=== PATIENT | male | born 1945 | race Caucasian/White ===

== ENCOUNTER 2018-02-11 12:55 | Inpatient (IN) | payer MEDICARE ==
[~2018-02-11] VITALS: Ht 182.9 cm; Wt 149.7 kg
[~2018-02-11 12:55] MED LIST: ATOR20TA PO; AZO1OS LEFTEYE; BIMA2.5D LEFTEYE; BRIM10DR2 LEFTEYE; ERGO500014 PO; FOLI1TAB2 PO; LEVO25TA2 PO; NOVRI SQ; NPH,100V2 SQ; VITC500T PO; ZOC40T PO
[2018-02-11] MEDS ORDERED: TETanus/Pertussis (Acell)/Diphther VAC/PF (Tdap-Adult) 0.5ml syringe IM ONE (13:00)
[2018-02-11] MEDS ORDERED: vancomycin/NS 1 GM ADD-VANTAGE 250 ML IV ONE (13:00)
[2018-02-11] MEDS ORDERED: piperacillin/tazo 3.375gm/50ml 50 ML IV ONE (13:00)
[2018-02-11 13:36] LABS: BASOPHILS % (AUTO) 0.2 % (0-1); EOSINOPHILS # (AUTO) 0.1 X10'3 (0-0.9); EOSINOPHILS % (AUTO) 1.2 % (0-6); HEMATOCRIT 37.2 % (42.0-52.0); HEMOGLOBIN 12.3 g/dl (14.0-17.9); LYMPHOCYTES # (AUTO) 1.6 X10'3 (1.1-4.8); LYMPHOCYTES % (AUTO) 16.1 % (21-51); MEAN CORPUSCULAR HEMOGLOBIN 27.2 PG (27.0-31.0); MEAN CORPUSCULAR HGB CONC 33.1 % (33.0-36.5); MEAN CORPUSCULAR VOLUME 82.4 FL (78-98); MEAN PLATELET VOLUME 7.6 FL (7.4-10.4); MONOCYTES # (AUTO) 0.4 X10'3 (0-0.9); MONOCYTES % (AUTO) 3.9 % (2-12); NEUTROPHILS # (AUTO) 7.6 X10'3 (1.8-7.7); NEUTROPHILS % (AUTO) 78.6 % (42-75); PLATELET COUNT 222 X10'3 (140-440); RED BLOOD COUNT 4.52 X10'6 (4.70-6.10); RED CELL DISTRIBUTION WIDTH 17.7 % (11.5-14.5); WHITE BLOOD COUNT 9.7 X10'3 (4.5-11.0)
[2018-02-11 13:49] LABS: INR 1.1 INR; PARTIAL THROMBOPLASTIN TIME 35 SECONDS (22-32); PROTHROMBIN TIME 10.9 SECONDS (9.0-12.0)
[2018-02-11 13:57] LABS: ALANINE AMINOTRANSFERASE 26 U/L (12-78); ALBUMIN 2.5 G/DL (3.4-5.0); ALBUMIN/GLOBULIN RATIO 0.5 (1.1-1.5); ALKALINE PHOSPHATASE 188 IU/L (46-116); ANION GAP 8 (8-16); ASPARTATE AMINO TRANSFERASE 22 U/L (10-37); BILIRUBIN,TOTAL 0.4 MG/DL (0.1-1.0); BLOOD UREA NITROGEN 46 MG/DL (7-18); CALCIUM 9.3 MG/DL (8.5-10.1); CHLORIDE 105 MMOL/L (99-107); CREATININE 1.77 MG/DL (0.60-1.10); GLUCOSE 271 MG/DL (70-104); MAGNESIUM 2.3 MG/DL (1.5-2.4); POTASSIUM 5.2 MMOL/L (3.5-5.1); SODIUM 144 MMOL/L (135-145); TOTAL CARBON DIOXIDE 30.6 MMOL/L (24-32); TOTAL PROTEIN 7.8 G/DL (6.4-8.2); eGFR 38 ML/MIN
[2018-02-11] MEDS ORDERED: ondansetron/PF 4mg/2ml inj IV PRN (15:10)
[2018-02-11] MEDS ORDERED: glucagon, human recombinant 1mg kit SUBCUT PRN (15:10)
[2018-02-11] MEDS ORDERED: dextrose ORAL solution 15 GM/59 ML bottle PO PRN ×2 (15:10)
[2018-02-11] MEDS ORDERED: dextrose 50%-water 50ml dispensing syringe IV PRN ×2 (15:10)
[2018-02-11] MEDS ORDERED: MESSAGE TO PHARMACY PO ONE (15:10)
[2018-02-11] MEDS ORDERED: magnesium hydroxide 30ml (MOM) UD suspension PO PRN (15:10)
[2018-02-11] MEDS ORDERED: acetaminophen 325mg tablet PO PRN (15:10)
[2018-02-11] MEDS ORDERED: mag hydrox/Alum hydrox/simeth 30ml oral suspension PO PRN (15:10)
[2018-02-11] MEDS: heparin, porcine 5000 units/ml vial SQ SCH (17:46)
[2018-02-11] MEDS: sodium chloride 0.45% 1,000 ML IV SCH (17:47)
[2018-02-11 18:07] LABS: CLARITY,URINE CLOUDY (Clear); COLOR,URINE YELLOW (Yellow); GLUCOSE, URINE NEGATIVE (Neg); KETONES,URINE NEGATIVE (Neg); LEUKOCYTE ESTERASE ,URINE LARGE (Neg); NITRITES, URINE NEGATIVE (Neg); OCCULT BLOOD,URINE TRACE-INTACT (Neg); PROTEIN,URINE TRACE mg/dl (Neg); UROBILINOGEN,URINE 0.2 E.U/dL (0.2-1.0)
[2018-02-11 18:15] LABS: UA COLLECTION TYPE URINAL
[2018-02-11 18:16] LABS: RBC,URINE 0-2 /HPF (0-2); WBC,URINE 30-50 /HPF (0-4)
[2018-02-11 18:17] LABS: BACTERIA,URINE FEW /HPF (Neg); MUCUS STRANDS NONE SEEN /LPF (Neg); RENAL CELLS, URINE FEW /HPF; SQUAMOUS EPITHELIAL CELL,UR FEW /LPF (FEW); YEAST MANY /HPF (NEGATIVE)
[2018-02-11] MEDS: aztreonam inj. 1,000 MG in normal saline 100ml IV soln 100 ML IV SCH (20:38)
[2018-02-11] MEDS: insulin glargine (Lantus) pen - multi-dose SQ SCH (21:00)
[2018-02-12] MEDS: heparin, porcine 5000 units/ml vial SQ SCH ×3 (01:19→23:27)
[2018-02-12] MEDS: sodium chloride 0.45% 1,000 ML IV SCH ×2 (03:02→16:21)
[2018-02-12 06:37] LABS: BASOPHILS % (AUTO) 0.1 % (0-1); EOSINOPHILS # (AUTO) 0.1 X10'3 (0-0.9); EOSINOPHILS % (AUTO) 1.3 % (0-6); HEMATOCRIT 34.4 % (42.0-52.0); HEMOGLOBIN 11.5 g/dl (14.0-17.9); LYMPHOCYTES # (AUTO) 1.8 X10'3 (1.1-4.8); LYMPHOCYTES % (AUTO) 21.9 % (21-51); MEAN CORPUSCULAR HEMOGLOBIN 27.6 PG (27.0-31.0); MEAN CORPUSCULAR HGB CONC 33.4 % (33.0-36.5); MEAN CORPUSCULAR VOLUME 82.7 FL (78-98); MEAN PLATELET VOLUME 7.5 FL (7.4-10.4); MONOCYTES # (AUTO) 0.5 X10'3 (0-0.9); MONOCYTES % (AUTO) 5.8 % (2-12); NEUTROPHILS # (AUTO) 5.8 X10'3 (1.8-7.7); NEUTROPHILS % (AUTO) 70.9 % (42-75); PLATELET COUNT 196 X10'3 (140-440); RED BLOOD COUNT 4.16 X10'6 (4.70-6.10); RED CELL DISTRIBUTION WIDTH 17.5 % (11.5-14.5); WHITE BLOOD COUNT 8.2 X10'3 (4.5-11.0)
[2018-02-12 07:08] LABS: ALBUMIN 2.3 G/DL (3.4-5.0); ANION GAP 8 (8-16); BLOOD UREA NITROGEN 39 MG/DL (7-18); BUN/CREATININE RATIO 23.5 (5.4-32.0); CALCIUM 8.4 MG/DL (8.5-10.1); CHLORIDE 107 MMOL/L (99-107); CREATININE 1.66 MG/DL (0.60-1.10); GLUCOSE 249 MG/DL (70-104); MAGNESIUM 2.2 MG/DL (1.5-2.4); POTASSIUM 4.8 MMOL/L (3.5-5.1); SODIUM 144 MMOL/L (135-145); TOTAL CARBON DIOXIDE 29.3 MMOL/L (24-32); eGFR 41 ML/MIN
[2018-02-12] MEDS ORDERED: levoFLOXACIN-Levaquin 750MG/D5 150 ML IV SCH (08:00)
[2018-02-12] MEDS: aztreonam inj. 1,000 MG in normal saline 100ml IV soln 100 ML IV SCH ×2 (09:12→19:20)
[2018-02-12 11:00] VITALS: BP 124/58
[2018-02-12] MEDS: insulin Lispro (HumaLOG) vial - multi-dose SQ SCH ×4 (11:02→23:13)
[2018-02-12] MEDS ORDERED: ATOR20TA PO (12:31)
[2018-02-12] MEDS ORDERED: ASPI-611 PO (12:32)
[2018-02-12] MEDS: metroNIDAZOLE 500mg tablet PO SCH ×3 (13:46→23:30)
[2018-02-12] MEDS ORDERED: pneumococcal 23-VAL P-sac vacc 25 mcg/0.5ml vial IMVAC ONE (14:00)
[2018-02-12] MEDS ORDERED: FLU VACC QS2017-18 36MOS UP/PF 60 MCG/0.5 ML SYRINGE IMVAC ONE (14:00)
[2018-02-12 19:00] VITALS: BP 126/58
[2018-02-12] MEDS: lactobacillus rhamnosus 10,000 MMU CELLS/CAPSULE PO SCH (19:19)
[2018-02-12 23:00] VITALS: BP 92/51
[2018-02-12] MEDS: insulin glargine (Lantus) pen - multi-dose SQ SCH (23:14)
[2018-02-13] MEDS: aztreonam inj. 1,000 MG in normal saline 100ml IV soln 100 ML IV SCH ×2 (01:34→09:33)
[2018-02-13 06:00] VITALS: BP 106/55
[2018-02-13] MEDS: metroNIDAZOLE 500mg tablet PO SCH ×3 (09:34→23:55)
[2018-02-13] MEDS: lactobacillus rhamnosus 10,000 MMU CELLS/CAPSULE PO SCH ×2 (09:34→19:43)
[2018-02-13] MEDS: heparin, porcine 5000 units/ml vial SQ SCH ×4 (09:34→23:56)
[2018-02-13] MEDS: sodium chloride 0.45% 1,000 ML IV SCH ×2 (09:42→20:52)
[2018-02-13] MEDS: insulin Lispro (HumaLOG) vial - multi-dose SQ SCH ×2 (09:53→15:19)
[2018-02-13 10:00] VITALS: BP 107/38
[2018-02-13] MEDS ORDERED: VANCOMYCIN LEVEL IV ONE (14:30)
[2018-02-13 14:59] LABS: ANION GAP 8 (8-16); BLOOD UREA NITROGEN 39 MG/DL (7-18); BUN/CREATININE RATIO 19.3 (5.4-32.0); CALCIUM 7.8 MG/DL (8.5-10.1); CHLORIDE 110 MMOL/L (99-107); CREATININE 2.02 MG/DL (0.60-1.10); GLUCOSE 175 MG/DL (70-104); POTASSIUM 4.6 MMOL/L (3.5-5.1); SODIUM 144 MMOL/L (135-145); TOTAL CARBON DIOXIDE 26.1 MMOL/L (24-32); eGFR 33 ML/MIN
[2018-02-13] MEDS: aztreonam inj. 1,000 MG in dextrose 5%-water 50ml 50 ML IV SCH ×3 (15:20→23:56)
[2018-02-13 18:30] VITALS: BP 114/48
[2018-02-13] MEDS: insulin glargine (Lantus) pen - multi-dose SQ SCH (20:54)
[2018-02-13 22:00] VITALS: BP 125/64
[2018-02-14] MEDS ORDERED: VANCOMYCIN LEVEL IV SCH (03:00)
[2018-02-14 04:37] LABS: BASOPHILS # (AUTO) 0.1 X10'3 (0-0.2); BASOPHILS % (AUTO) 0.7 % (0-1); EOSINOPHILS # (AUTO) 0.1 X10'3 (0-0.9); EOSINOPHILS % (AUTO) 1.3 % (0-6); HEMATOCRIT 30.7 % (42.0-52.0); HEMOGLOBIN 10.2 g/dl (14.0-17.9); LYMPHOCYTES # (AUTO) 2.1 X10'3 (1.1-4.8); MEAN CORPUSCULAR HEMOGLOBIN 27.3 PG (27.0-31.0); MEAN CORPUSCULAR HGB CONC 33.3 % (33.0-36.5); MEAN CORPUSCULAR VOLUME 81.9 FL (78-98); MEAN PLATELET VOLUME 7.4 FL (7.4-10.4); MONOCYTES # (AUTO) 0.8 X10'3 (0-0.9); MONOCYTES % (AUTO) 9.4 % (2-12); NEUTROPHILS # (AUTO) 5.5 X10'3 (1.8-7.7); NEUTROPHILS % (AUTO) 64.6 % (42-75); PLATELET COUNT 183 X10'3 (140-440); RED BLOOD COUNT 3.75 X10'6 (4.70-6.10); RED CELL DISTRIBUTION WIDTH 17.7 % (11.5-14.5); WHITE BLOOD COUNT 8.6 X10'3 (4.5-11.0)
[2018-02-14 04:53] LABS: ANION GAP 8 (8-16); BLOOD UREA NITROGEN 37 MG/DL (7-18); BUN/CREATININE RATIO 19.1 (5.4-32.0); CALCIUM 7.5 MG/DL (8.5-10.1); CHLORIDE 109 MMOL/L (99-107); CREATININE 1.94 MG/DL (0.60-1.10); GLUCOSE 132 MG/DL (70-104); POTASSIUM 4.2 MMOL/L (3.5-5.1); SODIUM 143 MMOL/L (135-145); TOTAL CARBON DIOXIDE 26.2 MMOL/L (24-32); VANCOMYCIN,RANDOM 26.8 UG/ML; eGFR 34 ML/MIN
[2018-02-14 06:00] VITALS: BP 123/77
[2018-02-14 08:00] VITALS: BP 120/68
[2018-02-14 09:59] VITALS: BP 126/64
[2018-02-14] MEDS: lactobacillus rhamnosus 10,000 MMU CELLS/CAPSULE PO SCH ×2 (12:04→19:38)
[2018-02-14] MEDS: aztreonam inj. 1,000 MG in dextrose 5%-water 50ml 50 ML IV SCH ×2 (12:04→16:26)
[2018-02-14] MEDS: metroNIDAZOLE 500mg tablet PO SCH ×2 (12:04→16:26)
[2018-02-14] MEDS: heparin, porcine 5000 units/ml vial SQ SCH ×2 (12:05→16:27)
[2018-02-14] MEDS: insulin Lispro (HumaLOG) vial - multi-dose SQ SCH ×2 (14:00→19:36)
[2018-02-14] MEDS: VANCOMYCIN 750MG IV in NS 250 ML IV SCH (17:38)
[2018-02-14] MEDS: sodium chloride 0.45% 1,000 ML IV SCH (17:39)
[2018-02-14 18:00] VITALS: BP 124/58
[2018-02-14] MEDS: insulin glargine (Lantus) pen - multi-dose SQ SCH (21:42)
[2018-02-14 22:00] VITALS: BP 133/67
[2018-02-15] MEDS: aztreonam inj. 1,000 MG in dextrose 5%-water 50ml 50 ML IV SCH ×3 (00:21→18:00)
[2018-02-15] MEDS: heparin, porcine 5000 units/ml vial SQ SCH ×4 (00:21→23:59)
[2018-02-15] MEDS: metroNIDAZOLE 500mg tablet PO SCH ×3 (00:21→18:00)
[2018-02-15] MEDS: sodium chloride 0.45% 1,000 ML IV SCH ×4 (01:05→21:35)
[2018-02-15] MEDS: VANCOMYCIN 750MG IV in NS 250 ML IV SCH ×2 (05:09→18:00)
[2018-02-15 06:00] VITALS: BP 133/74
[2018-02-15 06:24] LABS: ANION GAP 10 (8-16); BLOOD UREA NITROGEN 34 MG/DL (7-18); BUN/CREATININE RATIO 17.6 (5.4-32.0); CALCIUM 7.8 MG/DL (8.5-10.1); CHLORIDE 109 MMOL/L (99-107); CREATININE 1.93 MG/DL (0.60-1.10); GLUCOSE 121 MG/DL (70-104); POTASSIUM 4.1 MMOL/L (3.5-5.1); SODIUM 144 MMOL/L (135-145); TOTAL CARBON DIOXIDE 25.1 MMOL/L (24-32); eGFR 34 ML/MIN
[2018-02-15] MEDS: lactobacillus rhamnosus 10,000 MMU CELLS/CAPSULE PO SCH ×2 (07:56→21:36)
[2018-02-15 10:00] VITALS: BP 145/71
[2018-02-15 18:00] VITALS: BP 135/66
[2018-02-15] MEDS: insulin glargine (Lantus) pen - multi-dose SQ SCH (21:00)
[2018-02-15 22:00] VITALS: BP 121/55
[2018-02-16] MEDS ORDERED: VANCOMYCIN LEVEL IV NR (04:30)
[2018-02-16 06:00] VITALS: BP 116/59
[2018-02-16 07:04] LABS: ALBUMIN 1.9 G/DL (3.4-5.0); ANION GAP 11 (8-16); BLOOD UREA NITROGEN 29 MG/DL (7-18); BUN/CREATININE RATIO 16.2 (5.4-32.0); CALCIUM 7.6 MG/DL (8.5-10.1); CHLORIDE 109 MMOL/L (99-107); CREATININE 1.79 MG/DL (0.60-1.10); GLUCOSE 130 MG/DL (70-104); POTASSIUM 3.8 MMOL/L (3.5-5.1); SODIUM 143 MMOL/L (135-145); TOTAL CARBON DIOXIDE 23.4 MMOL/L (24-32); eGFR 38 ML/MIN
[2018-02-16] MEDS: lactobacillus rhamnosus 10,000 MMU CELLS/CAPSULE PO SCH ×2 (08:00→20:00)
[2018-02-16] MEDS: heparin, porcine 5000 units/ml vial SQ SCH ×2 (08:00→18:19)
[2018-02-16] MEDS: metroNIDAZOLE 500mg tablet PO SCH ×3 (08:00→16:00)
[2018-02-16 10:00] VITALS: BP 195/71
[2018-02-16] MEDS: sodium chloride 0.45% 1,000 ML IV SCH ×2 (10:31→17:05)
[2018-02-16] MEDS: aztreonam inj. 1,000 MG in dextrose 5%-water 50ml 50 ML IV SCH ×4 (10:31→18:18)
[2018-02-16 17:46] LABS: ABG BASE EXCESS -1.7 mmol/L (-2.0-3.0); ABG HCO3 24.1 mmol/L (22.0-26.0); ABG OXYGEN SATURATION 94.5 % (95-98); ABG PCO2 (T) 45.3 mmHg (35.0-48.0); ABG PH (T) 7.344 (7.350-7.450); ABG PO2 (T) 79.4 mmHg (83-108); ALLEN'S TEST Positive; FCOHb 1.2 % (0.5-1.5); FLOW 2 L/min; FMetHb 0.3 % (0.3-1.12); FO2Hb 93.1 % (94-100); TOTAL HEMOGLOBIN 11.3 G/dl (14.0-18.0)
[2018-02-16 19:00] LABS: BASOPHILS # (AUTO) 0.1 X10'3 (0-0.2); BASOPHILS % (AUTO) 0.5 % (0-1); EOSINOPHILS # (AUTO) 0.1 X10'3 (0-0.9); EOSINOPHILS % (AUTO) 1.3 % (0-6); HEMATOCRIT 32.2 % (42.0-52.0); HEMOGLOBIN 10.6 g/dl (14.0-17.9); LYMPHOCYTES # (AUTO) 1.6 X10'3 (1.1-4.8); MEAN CORPUSCULAR HEMOGLOBIN 27.5 PG (27.0-31.0); MEAN CORPUSCULAR HGB CONC 32.9 % (33.0-36.5); MEAN CORPUSCULAR VOLUME 83.7 FL (78-98); MEAN PLATELET VOLUME 6.9 FL (7.4-10.4); MONOCYTES # (AUTO) 1.2 X10'3 (0-0.9); MONOCYTES % (AUTO) 10.1 % (2-12); NEUTROPHILS # (AUTO) 8.4 X10'3 (1.8-7.7); NEUTROPHILS % (AUTO) 74.1 % (42-75); PLATELET COUNT 231 X10'3 (140-440); RED BLOOD COUNT 3.85 X10'6 (4.70-6.10); RED CELL DISTRIBUTION WIDTH 18.3 % (11.5-14.5); WHITE BLOOD COUNT 11.4 X10'3 (4.5-11.0)
[2018-02-16 19:29] LABS: ALANINE AMINOTRANSFERASE 23 U/L (12-78); ALBUMIN 2.1 G/DL (3.4-5.0); ALBUMIN/GLOBULIN RATIO 0.4 (1.1-1.5); ALKALINE PHOSPHATASE 199 IU/L (46-116); ANION GAP 12 (8-16); ASPARTATE AMINO TRANSFERASE 32 U/L (10-37); BILIRUBIN,TOTAL 0.5 MG/DL (0.1-1.0); BLOOD UREA NITROGEN 28 MG/DL (7-18); BUN/CREATININE RATIO 16.6 (5.4-32.0); CALCIUM 7.7 MG/DL (8.5-10.1); CHLORIDE 108 MMOL/L (99-107); CREATININE 1.69 MG/DL (0.60-1.10); GLUCOSE 137 MG/DL (70-104); POTASSIUM 3.7 MMOL/L (3.5-5.1); SODIUM 144 MMOL/L (135-145); TOTAL CARBON DIOXIDE 23.6 MMOL/L (24-32); TOTAL PROTEIN 6.8 G/DL (6.4-8.2); TROPONIN I < 0.04 NG/ML (0.0-0.05); eGFR 40 ML/MIN
[2018-02-16] MEDS: insulin glargine (Lantus) pen - multi-dose SQ SCH (21:00)
[2018-02-16] MEDS: vancomycin inj 500 MG in dextrose 5%-water 100 ML IV SCH (21:46)
[2018-02-16] MEDS ORDERED: naloxone 0.4 mg/ml inj IV ONE (21:55)
[2018-02-16] MEDS ORDERED: naloxone 0.4 mg/ml inj ONE (21:58)
[2018-02-16 22:00] VITALS: BP 137/50
[2018-02-16 22:34] LABS: URINE AMPHETAMINE SCREEN NEGATIVE (Neg); URINE BARBITUATE SCREEN NEGATIVE (Neg); URINE BENZODIAZEPINES SCREEN NEGATIVE (Neg); URINE CANNABINOID SCREEN NEGATIVE (Neg); URINE COCAINE SCREEN NEGATIVE (Neg); URINE METHADONE SCREEN NEGATIVE (Neg); URINE OPIATE SCREEN NEGATIVE (Neg); URINE PHENCYCLIDINE SCREEN NEGATIVE (Neg)
[2018-02-17] MEDS: aztreonam inj. 1,000 MG in dextrose 5%-water 50ml 50 ML IV SCH ×4 (00:14→23:51)
[2018-02-17] MEDS: heparin, porcine 5000 units/ml vial SQ SCH ×3 (00:15→16:18)
[2018-02-17] MEDS: sodium chloride 0.45% 1,000 ML IV SCH ×3 (00:16→23:05)
[2018-02-17 02:00] VITALS: BP 123/60
[2018-02-17] MEDS ORDERED: vancomycin/NS 1 GM ADD-VANTAGE 250 ML IV SCH (05:00)
[2018-02-17] MEDS: vancomycin inj 500 MG in dextrose 5%-water 100 ML IV SCH ×2 (05:28→17:00)
[2018-02-17 06:00] VITALS: BP 123/50
[2018-02-17] MEDS: metroNIDAZOLE 500mg tablet PO SCH ×4 (08:00→23:09)
[2018-02-17] MEDS: lactobacillus rhamnosus 10,000 MMU CELLS/CAPSULE PO SCH ×2 (08:00→20:43)
[2018-02-17] MEDS ORDERED: furosemide 20 MG/2 ML vial IV ONE (08:20)
[2018-02-17 11:20] LABS: ALBUMIN 1.9 G/DL (3.4-5.0); ANION GAP 9 (8-16); BLOOD UREA NITROGEN 27 MG/DL (7-18); BUN/CREATININE RATIO 18.1 (5.4-32.0); CALCIUM 7.6 MG/DL (8.5-10.1); CHLORIDE 109 MMOL/L (99-107); CREATININE 1.49 MG/DL (0.60-1.10); GLUCOSE 158 MG/DL (70-104); SODIUM 144 MMOL/L (135-145); TOTAL CARBON DIOXIDE 25.6 MMOL/L (24-32); eGFR 46 ML/MIN
[2018-02-17 15:00] VITALS: BP 125/54
[2018-02-17] MEDS: metroNIDAZOLE-Flagyl 500mg/NS 100 ML IV SCH ×2 (16:00→23:17)
[2018-02-17 18:00] VITALS: BP 136/54
[2018-02-17] MEDS: insulin glargine (Lantus) pen - multi-dose SQ SCH (21:00)
[2018-02-17 22:00] VITALS: BP 122/52
[2018-02-17] MEDS ORDERED: aztreonam 1,000MG vial ONE (23:31)
[2018-02-18] MEDS: heparin, porcine 5000 units/ml vial SQ SCH ×3 (00:18→16:20)
[2018-02-18 02:00] VITALS: BP 134/59
[2018-02-18] MEDS: vancomycin inj 500 MG in dextrose 5%-water 100 ML IV SCH ×2 (04:29→17:47)
[2018-02-18] MEDS ORDERED: VANCOMYCIN LEVEL IV NR (04:30)
[2018-02-18 04:50] LABS: ALBUMIN 1.7 G/DL (3.4-5.0); ANION GAP 7 (8-16); BLOOD UREA NITROGEN 27 MG/DL (7-18); BUN/CREATININE RATIO 17.8 (5.4-32.0); CALCIUM 7.4 MG/DL (8.5-10.1); CHLORIDE 108 MMOL/L (99-107); CREATININE 1.52 MG/DL (0.60-1.10); GLUCOSE 225 MG/DL (70-104); POTASSIUM 3.8 MMOL/L (3.5-5.1); SODIUM 143 MMOL/L (135-145); TOTAL CARBON DIOXIDE 27.7 MMOL/L (24-32); VANCOMYCIN,TROUGH 17.1 UG/ML (6.0-14.0); eGFR 45 ML/MIN
[2018-02-18] MEDS: sodium chloride 0.45% 1,000 ML IV SCH ×2 (05:34→19:05)
[2018-02-18 07:11] VITALS: BP 133/55
[2018-02-18] MEDS: metroNIDAZOLE-Flagyl 500mg/NS 100 ML IV SCH (08:00)
[2018-02-18] MEDS ORDERED: furosemide 20 MG/2 ML vial IV SCH (08:00)
[2018-02-18] MEDS: lactobacillus rhamnosus 10,000 MMU CELLS/CAPSULE PO SCH ×2 (08:34→19:25)
[2018-02-18] MEDS: aztreonam inj. 1,000 MG in dextrose 5%-water 50ml 50 ML IV SCH ×2 (08:34→16:20)
[2018-02-18] MEDS: metroNIDAZOLE 500mg tablet PO SCH ×2 (08:34→16:20)
[2018-02-18 11:00] VITALS: BP 131/58
[2018-02-18] MEDS: insulin Lispro (HumaLOG) vial - multi-dose SQ SCH ×2 (13:33→19:33)
[2018-02-18] MEDS ORDERED: gabapentin 100mg capsule PO PRN (14:05)
[2018-02-18 15:00] VITALS: BP 112/45
[2018-02-18 18:00] VITALS: BP 130/58
[2018-02-18] MEDS: insulin glargine (Lantus) pen - multi-dose SQ SCH (20:55)
[2018-02-18] MEDS: Melatonin 3mg tablet PO SCH (20:59)
[2018-02-18 22:00] VITALS: BP 118/55
[2018-02-19] MEDS: aztreonam inj. 1,000 MG in dextrose 5%-water 50ml 50 ML IV SCH ×3 (00:25→15:56)
[2018-02-19] MEDS: metroNIDAZOLE 500mg tablet PO SCH ×3 (00:25→15:56)
[2018-02-19] MEDS: heparin, porcine 5000 units/ml vial SQ SCH ×3 (00:28→15:56)
[2018-02-19 02:00] VITALS: BP 119/48
[2018-02-19] MEDS: sodium chloride 0.45% 1,000 ML IV SCH ×2 (05:05→15:20)
[2018-02-19 05:20] LABS: BASOPHILS % (AUTO) 0.3 % (0-1); EOSINOPHILS # (AUTO) 0.2 X10'3 (0-0.9); EOSINOPHILS % (AUTO) 1.7 % (0-6); HEMATOCRIT 29.7 % (42.0-52.0); HEMOGLOBIN 9.7 g/dl (14.0-17.9); LYMPHOCYTES # (AUTO) 1.6 X10'3 (1.1-4.8); LYMPHOCYTES % (AUTO) 14.2 % (21-51); MEAN CORPUSCULAR HEMOGLOBIN 27.6 PG (27.0-31.0); MEAN CORPUSCULAR HGB CONC 32.7 % (33.0-36.5); MEAN CORPUSCULAR VOLUME 84.4 FL (78-98); MEAN PLATELET VOLUME 7.8 FL (7.4-10.4); MONOCYTES % (AUTO) 9.2 % (2-12); NEUTROPHILS # (AUTO) 8.5 X10'3 (1.8-7.7); NEUTROPHILS % (AUTO) 74.6 % (42-75); PLATELET COUNT 247 X10'3 (140-440); RED BLOOD COUNT 3.52 X10'6 (4.70-6.10); RED CELL DISTRIBUTION WIDTH 17.7 % (11.5-14.5); WHITE BLOOD COUNT 11.3 X10'3 (4.5-11.0)
[2018-02-19] MEDS: vancomycin inj 500 MG in dextrose 5%-water 100 ML IV SCH ×2 (05:22→17:18)
[2018-02-19 05:27] LABS: ALBUMIN 1.7 G/DL (3.4-5.0); ALBUMIN/GLOBULIN RATIO 0.4 (1.1-1.5); ALKALINE PHOSPHATASE 177 IU/L (46-116); ANION GAP 8 (8-16); ASPARTATE AMINO TRANSFERASE 15 U/L (10-37); BILIRUBIN,TOTAL 0.2 MG/DL (0.1-1.0); BLOOD UREA NITROGEN 29 MG/DL (7-18); CALCIUM 7.6 MG/DL (8.5-10.1); CHLORIDE 105 MMOL/L (99-107); CREATININE 1.53 MG/DL (0.60-1.10); GLUCOSE 204 MG/DL (70-104); POTASSIUM 4.1 MMOL/L (3.5-5.1); SODIUM 139 MMOL/L (135-145); TOTAL CARBON DIOXIDE 26.1 MMOL/L (24-32); TOTAL PROTEIN 6.4 G/DL (6.4-8.2); eGFR 45 ML/MIN
[2018-02-19 05:41] LABS: ALANINE AMINOTRANSFERASE 16 U/L (12-78)
[2018-02-19 06:39] VITALS: BP 123/53
[2018-02-19] MEDS: lactobacillus rhamnosus 10,000 MMU CELLS/CAPSULE PO SCH ×2 (08:01→21:37)
[2018-02-19] MEDS: insulin Lispro (HumaLOG) vial - multi-dose SQ SCH ×4 (08:13→21:42)
[2018-02-19 11:00] VITALS: BP 132/59
[2018-02-19 15:00] VITALS: BP 147/61
[2018-02-19 19:00] VITALS: BP 179/82
[2018-02-19] MEDS: Melatonin 3mg tablet PO SCH (21:37)
[2018-02-19] MEDS: insulin glargine (Lantus) pen - multi-dose SQ SCH (21:46)
[2018-02-19 23:00] VITALS: BP 148/60
[2018-02-20] MEDS: metroNIDAZOLE 500mg tablet PO SCH ×3 (00:29→16:37)
[2018-02-20] MEDS: heparin, porcine 5000 units/ml vial SQ SCH ×2 (00:29→10:49)
[2018-02-20] MEDS: aztreonam inj. 1,000 MG in dextrose 5%-water 50ml 50 ML IV SCH ×3 (00:30→16:37)
[2018-02-20 02:43] LABS: BASOPHILS # (AUTO) 0.1 X10'3 (0-0.2); BASOPHILS % (AUTO) 0.9 % (0-1); EOSINOPHILS # (AUTO) 0.3 X10'3 (0-0.9); EOSINOPHILS % (AUTO) 2.8 % (0-6); HEMATOCRIT 29.9 % (42.0-52.0); HEMOGLOBIN 9.8 g/dl (14.0-17.9); LYMPHOCYTES # (AUTO) 1.9 X10'3 (1.1-4.8); LYMPHOCYTES % (AUTO) 15.6 % (21-51); MEAN CORPUSCULAR HEMOGLOBIN 27.9 PG (27.0-31.0); MEAN CORPUSCULAR HGB CONC 32.6 % (33.0-36.5); MEAN CORPUSCULAR VOLUME 85.4 FL (78-98); MEAN PLATELET VOLUME 8.4 FL (7.4-10.4); MONOCYTES # (AUTO) 1.1 X10'3 (0-0.9); MONOCYTES % (AUTO) 8.9 % (2-12); NEUTROPHILS # (AUTO) 8.6 X10'3 (1.8-7.7); NEUTROPHILS % (AUTO) 71.8 % (42-75); PLATELET COUNT 305 X10'3 (140-440); RED CELL DISTRIBUTION WIDTH 18.8 % (11.5-14.5); WHITE BLOOD COUNT 11.9 X10'3 (4.5-11.0)
[2018-02-20 02:58] LABS: ALANINE AMINOTRANSFERASE 16 U/L (12-78); ALBUMIN 1.7 G/DL (3.4-5.0); ALBUMIN/GLOBULIN RATIO 0.3 (1.1-1.5); ALKALINE PHOSPHATASE 184 IU/L (46-116); ANION GAP 6 (8-16); ASPARTATE AMINO TRANSFERASE 12 U/L (10-37); BILIRUBIN,TOTAL 0.2 MG/DL (0.1-1.0); BLOOD UREA NITROGEN 28 MG/DL (7-18); BUN/CREATININE RATIO 17.7 (5.4-32.0); CALCIUM 7.7 MG/DL (8.5-10.1); CHLORIDE 106 MMOL/L (99-107); CREATININE 1.58 MG/DL (0.60-1.10); GLUCOSE 214 MG/DL (70-104); POTASSIUM 4.1 MMOL/L (3.5-5.1); SODIUM 141 MMOL/L (135-145); TOTAL PROTEIN 6.6 G/DL (6.4-8.2); eGFR 43 ML/MIN
[2018-02-20 03:00] VITALS: BP 136/47
[2018-02-20] MEDS: vancomycin inj 500 MG in dextrose 5%-water 100 ML IV SCH (04:24)
[2018-02-20] MEDS: sodium chloride 0.45% 1,000 ML IV SCH (04:24)
[2018-02-20] MEDS ORDERED: VANCOMYCIN LEVEL IV NR (04:30)
[2018-02-20 07:00] VITALS: BP 135/54
[2018-02-20] MEDS: insulin Lispro (HumaLOG) vial - multi-dose SQ SCH (09:45)
[2018-02-20] MEDS: lactobacillus rhamnosus 10,000 MMU CELLS/CAPSULE PO SCH (10:50)
[2018-02-20 11:00] VITALS: BP 159/64
[2018-02-20 17:00] VITALS: BP 176/69
== END 2018-02-20 17:47 | DRG 564 ==
LOC: EDBD 12:56 → ER 12:56 → ED HOLD 15:06 → EDBEDREQ 02-12 06:37 → ORTHO 4S 02-12 07:20 → PCU 3S 02-16 19:30
PROVIDERS: ADMIT Internal Medicine; ATTEND Family Medicine
PROC: 02HV33Z Insertion of Infusion Device into Superior Vena Cava, Percutaneous Approach (ICD-10-PCS; principal; 2018-02-16)
PROC: B548ZZA Ultrasonography of Superior Vena Cava, Guidance (ICD-10-PCS; 2018-02-16)
DX: T87.44 Infection of amputation stump, left lower extremity (principal); A41.9 Sepsis, unspecified organism; E43 Unspecified severe protein-calorie malnutrition; G93.40 Encephalopathy, unspecified; I50.33 Acute on chronic diastolic (congestive) heart failure; N17.9 Acute kidney failure, unspecified; L03.115 Cellulitis of right lower limb; L03.116 Cellulitis of left lower limb; Z68.41 Body mass index [BMI] 40.0-44.9, adult; I13.0 Hypertensive heart and chronic kidney disease with heart failure and stage 1 through stage 4 chronic kidney disease, or unspecified chronic kidney disease; M86.68 Other chronic osteomyelitis, other site; T87.43 Infection of amputation stump, right lower extremity; E66.01 Morbid (severe) obesity due to excess calories; F17.210 Nicotine dependence, cigarettes, uncomplicated; E11.65 Type 2 diabetes mellitus with hyperglycemia; E11.22 Type 2 diabetes mellitus with diabetic chronic kidney disease; E11.69 Type 2 diabetes mellitus with other specified complication; B95.62 Methicillin resistant Staphylococcus aureus infection as the cause of diseases classified elsewhere; I89.0 Lymphedema, not elsewhere classified; K21.9 Gastro-esophageal reflux disease without esophagitis; N18.3 Chronic kidney disease, stage 3 (moderate); Z74.01 Bed confinement status; Z89.512 Acquired absence of left leg below knee; Z89.511 Acquired absence of right leg below knee; Z88.0 Allergy status to penicillin; Z79.4 Long term (current) use of insulin; Z79.899 Other long term (current) drug therapy; Z83.3 Family history of diabetes mellitus; Z23 Encounter for immunization; Y83.8 Other surgical procedures as the cause of abnormal reaction of the patient, or of later complication, without mention of misadventure at the time of the procedure; Y92.89 Other specified places as the place of occurrence of the external cause
CPT/HCPCS: 36415; 36569; 36600; 70450; 71045; 73560; 76937; 80048; 80053; 80202; 80305; 81001; 82140; 82803; 82948; 83036; 83605; 83735; 83880; 84145; 84443; 84484; 85018; 85025; 85610; 85730; 87040; 87070; 87077; 87088; 87186; 90715; 93005; 93306; 99285; A4315; A4649; A6209; A6212; A6213; A6222; A6223; A6224; A6250; A6253; A6255; A6258; A6402; A6446; A6449; A9270; J1644; J1815; J1940; J2310; J3370; J3490; J7030; J7060

== ENCOUNTER 2020-08-08 10:51 | Outpatient (CLI) | payer MEDICARE ==
[~2020-08-08 10:51] MED LIST changes: +ASPI-611 PO
== END 2020-08-08 23:59 | disposition home or self-care (01) ==
LOC: LAB SPEC 10:51
PROVIDERS: ATTEND Internal Medicine
DX: S81.802A Unspecified open wound, left lower leg, initial encounter (principal); X58.XXXA Exposure to other specified factors, initial encounter; Y93.89 Activity, other specified; Y92.89 Other specified places as the place of occurrence of the external cause; Y99.8 Other external cause status
CPT/HCPCS: 87070; 87077; 87186

== ENCOUNTER 2023-12-15 14:32 | Inpatient (IN) | payer MEDICARE ==
[~2023-12-15] VITALS: Ht 185.4 cm; Wt 86.0 kg
[~2023-12-15 14:32] MED LIST changes: -AZO1OS LEFTEYE; +BRIN10DR6 LEFTEYE; -ERGO500014 PO; -LEVO25TA2 PO; +LEVO50TA8 PO; -NOVRI SQ; +SULF1TAB49 PO; -VITC500T PO; -ZOC40T PO
[2023-12-15] MEDS: normal saline 1000ML IV soln IVB ONE ×2 (15:10→23:05)
[2023-12-15 16:39] LABS: BASOPHILS % (AUTO) 0.2 % (0-1); EOSINOPHILS # (AUTO) 0.1 X10'3 (0-0.9); EOSINOPHILS % (AUTO) 0.7 % (0-6); HEMATOCRIT 35.5 % (42.0-52.0); HEMOGLOBIN 11.5 g/dl (14.0-17.9); LYMPHOCYTES # (AUTO) 0.9 X10'3 (1.1-4.8); LYMPHOCYTES % (AUTO) 11.7 % (21-51); MEAN CORPUSCULAR HEMOGLOBIN 27.3 PG (27.0-31.0); MEAN CORPUSCULAR HGB CONC 32.4 g/dL (33.0-36.5); MEAN CORPUSCULAR VOLUME 84.4 FL (78-98); MEAN PLATELET VOLUME 7.8 FL (7.4-10.4); MONOCYTES # (AUTO) 0.5 X10'3 (0-0.9); MONOCYTES % (AUTO) 6.6 % (2-12); NEUTROPHILS # (AUTO) 6.1 X10'3 (1.8-7.7); NEUTROPHILS % (AUTO) 80.8 % (42-75); PLATELET COUNT 161 X10'3 (140-440); WHITE BLOOD COUNT 7.5 X10'3 (4.5-11.0)
[2023-12-15 16:57] LABS: ALANINE AMINOTRANSFERASE 57 U/L (12-78); ALBUMIN 1.9 G/DL (3.4-5.0); ALBUMIN/GLOBULIN RATIO 0.5 (1.1-1.5); ALKALINE PHOSPHATASE 100 IU/L (46-116); ASPARTATE AMINO TRANSFERASE 41 U/L (10-37); BILIRUBIN,TOTAL 0.4 MG/DL (0.1-1.0); BLOOD UREA NITROGEN 33 MG/DL (7-18); CHLORIDE 113 MMOL/L (99-107); CREATININE 1.18 MG/DL (0.60-1.10); GLUCOSE 97 MG/DL (70-104); POTASSIUM 5.3 MMOL/L (3.5-5.1); SODIUM 140 MMOL/L (135-145); TOTAL PROTEIN 5.6 G/DL (6.4-8.2); eGFR 60 ML/MIN
[2023-12-15 16:59] LABS: ANISOCYTOSIS 3+; BURR CELLS 1+; PLATELET ESTIMATE NORMAL
[2023-12-15 17:08] LABS: ANION GAP 6 (8-16); TOTAL CARBON DIOXIDE 20.8 MMOL/L (24-32)
[2023-12-15 22:16] LABS: BILIRUBIN,URINE NEGATIVE (Neg); CLARITY,URINE CLOUDY (Clear); COLOR,URINE YELLOW (Yellow); GLUCOSE, URINE NEGATIVE (Neg); KETONES,URINE NEGATIVE (Neg); LEUKOCYTE ESTERASE ,URINE MODERATE (Neg); NITRITES, URINE NEGATIVE (Neg); OCCULT BLOOD,URINE LARGE (Neg); PROTEIN,URINE TRACE mg/dl (Neg); UROBILINOGEN,URINE 0.2 E.U/dL (0.2-1.0)
[2023-12-15 22:24] LABS: UA COLLECTION TYPE CLN CATCH MIDSTREAM
[2023-12-15 22:25] LABS: RBC,URINE 20-50 /HPF (0-2); SQUAMOUS EPITHELIAL CELL,UR FEW /LPF (FEW)
[2023-12-15 22:26] LABS: BACTERIA,URINE 1+ /HPF (Neg); WBC CLUMPS,URINE FEW /HPF (NEGATIVE); WBC,URINE TNTC /HPF (0-4)
[2023-12-15] MEDS: ciprofloxacin lact 400MG/200ML 200 ML IV SCH (23:03)
[2023-12-15] MEDS: LidoCAINE 2% Topical Jelly 11mL syringe TOP ONE (23:45)
[2023-12-15] MEDS ORDERED: magnesium 4gm in 100ml NS 100 ML IV PRN (23:50)
[2023-12-15] MEDS ORDERED: magnesium Cl slow-release 64mg tablet PO PRN (23:50)
[2023-12-15] MEDS ORDERED: potassium Cl 40MEQ/1/2NS 520ml 520 ML IV PRN (23:50)
[2023-12-15] MEDS ORDERED: ondansetron/PF 4mg/2ml inj IV PRN (23:50)
[2023-12-15] MEDS ORDERED: potassium Cl 20 mEq SR tablet PO PRN ×2 (23:50)
[2023-12-15] MEDS ORDERED: magnesium 2GM in 50ml NS 50 ML IV PRN (23:50)
[2023-12-15] MEDS: normal saline 1000ml 1,000 ML IV SCH (23:50)
[2023-12-16 02:21] LABS: BASOPHILS % (AUTO) 0.3 % (0-1); EOSINOPHILS # (AUTO) 0.1 X10'3 (0-0.9); EOSINOPHILS % (AUTO) 0.9 % (0-6); HEMATOCRIT 35.5 % (42.0-52.0); HEMOGLOBIN 11.5 g/dl (14.0-17.9); LYMPHOCYTES # (AUTO) 1.3 X10'3 (1.1-4.8); LYMPHOCYTES % (AUTO) 18.5 % (21-51); MEAN CORPUSCULAR HEMOGLOBIN 27.4 PG (27.0-31.0); MEAN CORPUSCULAR HGB CONC 32.2 g/dL (33.0-36.5); MEAN CORPUSCULAR VOLUME 85.2 FL (78-98); MONOCYTES # (AUTO) 0.3 X10'3 (0-0.9); MONOCYTES % (AUTO) 4.3 % (2-12); NEUTROPHILS # (AUTO) 5.3 X10'3 (1.8-7.7); PLATELET COUNT 159 X10'3 (140-440); RED BLOOD COUNT 4.17 X10'6 (4.70-6.10)
[2023-12-16 02:37] LABS: GLUCOSE 62 MG/DL (70-104); POTASSIUM 5.4 MMOL/L (3.5-5.1); SODIUM 142 MMOL/L (135-145)
[2023-12-16 02:38] LABS: ALBUMIN 2.1 G/DL (3.4-5.0); ANION GAP 8 (8-16); BLOOD UREA NITROGEN 31 MG/DL (7-18); BUN/CREATININE RATIO 26.3 (10.0-20.0); CALCIUM 8.1 MG/DL (8.5-10.1); CHLORIDE 113 MMOL/L (99-107); CREATININE 1.18 MG/DL (0.60-1.10); MAGNESIUM 1.7 MG/DL (1.5-2.4); TOTAL CARBON DIOXIDE 20.9 MMOL/L (24-32); eCRCL 58 ML/MIN; eGFR 60 ML/MIN
[2023-12-16 03:01] LABS: ANISOCYTOSIS 3+; PLATELET ESTIMATE NORMAL
[2023-12-16 03:17] LABS: ELLIPTOCYTES 1+; POIKILOCYTOSIS 1+
[2023-12-16] MEDS: normal saline 1000ml 1,000 ML IV ONE ×2 (05:44→09:35)
[2023-12-16] MEDS: K and/or MAG REPLACEMENT MC SCH (08:00)
[2023-12-16] MEDS: levoFLOXACIN-Levaquin 750MG/D5 150 ML IV SCH (08:01)
[2023-12-16] MEDS: heparin, porcine 5000 units/ml vial SQ SCH (08:04)
[2023-12-16] MEDS: fluconazole-Diflucan 200mg/NS 100 ML IV SCH (08:25)
[2023-12-16 08:54] LABS: FREE T4 (FREE THYROXINE) 1.1 NG/DL (0.73-1.40); THYROID STIMULATING HORMONE 2.61 ulU/ml (0.34-4.50)
[2023-12-16] MEDS: DOPamine 400mg/D5W 250ml 250 ML IV SCH (09:02)
[2023-12-16] MEDS: normal saline 1000ml 1,000 ML IVB ONE (09:06)
[2023-12-16 09:21] LABS: BASOPHILS % (AUTO) 0.6 % (0-1); EOSINOPHILS # (AUTO) 0.1 X10'3 (0-0.9); EOSINOPHILS % (AUTO) 1.2 % (0-6); HEMATOCRIT 31.5 % (42.0-52.0); HEMOGLOBIN 10.1 g/dl (14.0-17.9); LYMPHOCYTES # (AUTO) 0.9 X10'3 (1.1-4.8); LYMPHOCYTES % (AUTO) 15.8 % (21-51); MEAN CORPUSCULAR HEMOGLOBIN 27.3 PG (27.0-31.0); MEAN CORPUSCULAR HGB CONC 31.9 g/dL (33.0-36.5); MEAN CORPUSCULAR VOLUME 85.4 FL (78-98); MEAN PLATELET VOLUME 7.9 FL (7.4-10.4); MONOCYTES # (AUTO) 0.3 X10'3 (0-0.9); MONOCYTES % (AUTO) 5.8 % (2-12); NEUTROPHILS # (AUTO) 4.3 X10'3 (1.8-7.7); NEUTROPHILS % (AUTO) 76.6 % (42-75); PLATELET COUNT 128 X10'3 (140-440); RED BLOOD COUNT 3.69 X10'6 (4.70-6.10); RED CELL DISTRIBUTION WIDTH 22.5 % (11.5-14.5); WHITE BLOOD COUNT 5.6 X10'3 (4.5-11.0)
[2023-12-16] MEDS: dexamethasone sod phosphate 10mg/ml inj IV STA (09:36)
[2023-12-16 09:39] LABS: ALANINE AMINOTRANSFERASE 51 U/L (12-78); ALBUMIN 1.7 G/DL (3.4-5.0); ALBUMIN/GLOBULIN RATIO 0.5 (1.1-1.5); ALKALINE PHOSPHATASE 86 IU/L (46-116); ANION GAP 9 (8-16); ASPARTATE AMINO TRANSFERASE 35 U/L (10-37); BILIRUBIN,TOTAL 0.4 MG/DL (0.1-1.0); BLOOD UREA NITROGEN 30 MG/DL (7-18); BUN/CREATININE RATIO 27.5 (10.0-20.0); CALCIUM 7.2 MG/DL (8.5-10.1); CREATININE 1.09 MG/DL (0.60-1.10); GLUCOSE 77 MG/DL (70-104); POTASSIUM 5.1 MMOL/L (3.5-5.1); SODIUM 141 MMOL/L (135-145); TOTAL CARBON DIOXIDE 17.5 MMOL/L (24-32); TOTAL PROTEIN 5.2 G/DL (6.4-8.2); eCRCL 63 ML/MIN; eGFR 65 ML/MIN
[2023-12-16] MEDS: vancomycin/NS 1 GM ADD-VANTAGE 250 ML IV SCH (09:40)
[2023-12-16 10:32] LABS: CHLORIDE 115 MMOL/L (99-107)
[2023-12-16] MEDS ORDERED: calcium gluconate inj. 1 GM in normal saline 100ml IV soln 100 ML IV PRN (14:55)
[2023-12-16] MEDS ORDERED: CALCIUM GLUC 1gm/50ml NACL,iso 50 ML IV PRN (15:05)
[2023-12-16] MEDS ORDERED: DEXTROSE 15 GM of carb/4 tabs (each vial/BOTTLE has 4 tablets) PO PRN ×2 (15:40)
[2023-12-16] MEDS ORDERED: dextrose 50%-water 50ml dispensing syringe IV PRN (15:40)
[2023-12-16] MEDS ORDERED: glucagon, human recombinant 1mg kit SUBCUT PRN (15:40)
[2023-12-16] MEDS: dextrose 50%-water 50ml dispensing syringe IV PRN (15:57)
[2023-12-16] MEDS: albumin (human) 25% 100ml IV 100 ML IV ONE (18:19)
[2023-12-17] VITALS (10 sets, daily range): BP systolic 87–152; BP diastolic 44–57; PULSE 89–120; RESP 12–19; TEMP 96.6–98.4; O2SAT 95–98
[2023-12-17 06:04] LABS: BASOPHILS % (AUTO) 0.1 % (0-1); EOSINOPHILS % (AUTO) 0 % (0-6); HEMATOCRIT 31.1 % (42.0-52.0); LYMPHOCYTES # (AUTO) 0.6 X10'3 (1.1-4.8); LYMPHOCYTES % (AUTO) 7.1 % (21-51); MEAN CORPUSCULAR HEMOGLOBIN 27.6 PG (27.0-31.0); MEAN CORPUSCULAR HGB CONC 32.2 g/dL (33.0-36.5); MEAN CORPUSCULAR VOLUME 85.7 FL (78-98); MEAN PLATELET VOLUME 8.7 FL (7.4-10.4); MONOCYTES % (AUTO) 0.5 % (2-12); NEUTROPHILS # (AUTO) 7.8 X10'3 (1.8-7.7); NEUTROPHILS % (AUTO) 92.3 % (42-75); PLATELET COUNT 154 X10'3 (140-440); RED BLOOD COUNT 3.63 X10'6 (4.70-6.10); RED CELL DISTRIBUTION WIDTH 22.5 % (11.5-14.5); WHITE BLOOD COUNT 8.4 X10'3 (4.5-11.0)
[2023-12-17 06:26] LABS: ALBUMIN 2.3 G/DL (3.4-5.0); ANION GAP 15 (8-16); BLOOD UREA NITROGEN 32 MG/DL (7-18); BUN/CREATININE RATIO 27.6 (10.0-20.0); CALCIUM 7.3 MG/DL (8.5-10.1); CHLORIDE 114 MMOL/L (99-107); CREATININE 1.16 MG/DL (0.60-1.10); GLUCOSE 64 MG/DL (70-104); MAGNESIUM 1.5 MG/DL (1.5-2.4); SODIUM 141 MMOL/L (135-145); eCRCL 59 ML/MIN; eGFR 61 ML/MIN
[2023-12-17 06:28] LABS: POTASSIUM 6.4 MMOL/L (3.5-5.1); TOTAL CARBON DIOXIDE 12.4 MMOL/L (24-32)
[2023-12-17 06:51] LABS: ACANTHOCYTES FEW; ANISOCYTOSIS 3+; BURR CELLS 1+; ELLIPTOCYTES FEW; PLATELET ESTIMATE NORMAL; TEAR DROP CELLS FEW
[2023-12-17] MEDS: hydrocortisone sod succ/PF 100mg/2ml inj. IV SCH (08:01)
[2023-12-17] MEDS ORDERED: sodium bicarbonate (8.4%) inj. 150 MEQ in sodium chloride 0.45% 850 ML IV SCH (08:15)
[2023-12-17] MEDS ORDERED: albuterol 2.5 MG/3 ML nebule NEB ONE (08:15)
[2023-12-17] MEDS ORDERED: sodium bicarbonate (8.4%) 1 mEq/ml syringe IV ONE (08:15)
[2023-12-17] MEDS ORDERED: NPH,100V SQ (11:06)
[2023-12-17] MEDS: sodium bicarbonate (8.4%) inj. 150 MEQ in sodium chloride 0.45% 1,000 ML IV SCH (12:29)
[2023-12-17] MEDS: sodium bicarbonate (8.4%) inj. 1 MEQ/ML ML IV ONE (12:44)
[2023-12-17] MEDS: SODIUM ZIRCONIUM CYCLOSILICATE 10 GM POWD.PACK PO SCH (14:38)
[2023-12-17] MEDS: HYDROcodone/acetaminophen 5mg/325mg tablet PO PRN (21:19)
[2023-12-17] MEDS: VANCOMYCIN LEVEL IV ONE (21:55)
[2023-12-17 22:18] LABS: ALANINE AMINOTRANSFERASE 51 U/L (12-78); ALBUMIN 2.4 G/DL (3.4-5.0); ALBUMIN/GLOBULIN RATIO 0.8 (1.1-1.5); ALKALINE PHOSPHATASE 96 IU/L (46-116); ANION GAP 13 (8-16); ASPARTATE AMINO TRANSFERASE 38 U/L (10-37); BILIRUBIN,TOTAL 0.4 MG/DL (0.1-1.0); BLOOD UREA NITROGEN 37 MG/DL (7-18); BUN/CREATININE RATIO 23.3 (10.0-20.0); CALCIUM 7.2 MG/DL (8.5-10.1); CHLORIDE 115 MMOL/L (99-107); CREATININE 1.59 MG/DL (0.60-1.10); GLUCOSE 75 MG/DL (70-104); MAGNESIUM 1.6 MG/DL (1.5-2.4); POTASSIUM 5.5 MMOL/L (3.5-5.1); SODIUM 144 MMOL/L (135-145); TOTAL CARBON DIOXIDE 16.3 MMOL/L (24-32); TOTAL PROTEIN 5.6 G/DL (6.4-8.2); eCRCL 43 ML/MIN; eGFR 42 ML/MIN
[2023-12-18] VITALS (7 sets, daily range): BP systolic 127–159; BP diastolic 55–81; PULSE 89–98; RESP 16–20; TEMP 97.9–98.2; O2SAT 92–99
[2023-12-18 07:05] LABS: BASOPHILS % (AUTO) 0.3 % (0-1); EOSINOPHILS % (AUTO) 0.1 % (0-6); HEMATOCRIT 31.3 % (42.0-52.0); HEMOGLOBIN 10.2 g/dl (14.0-17.9); LYMPHOCYTES # (AUTO) 1.1 X10'3 (1.1-4.8); MEAN CORPUSCULAR HEMOGLOBIN 27.5 PG (27.0-31.0); MEAN CORPUSCULAR HGB CONC 32.7 g/dL (33.0-36.5); MEAN CORPUSCULAR VOLUME 84.1 FL (78-98); MEAN PLATELET VOLUME 7.8 FL (7.4-10.4); MONOCYTES # (AUTO) 0.8 X10'3 (0-0.9); MONOCYTES % (AUTO) 8.6 % (2-12); NEUTROPHILS # (AUTO) 7.9 X10'3 (1.8-7.7); PLATELET COUNT 170 X10'3 (140-440); RED BLOOD COUNT 3.72 X10'6 (4.70-6.10); RED CELL DISTRIBUTION WIDTH 22.2 % (11.5-14.5); WHITE BLOOD COUNT 9.8 X10'3 (4.5-11.0)
[2023-12-18 07:16] LABS: ALBUMIN 2.4 G/DL (3.4-5.0); ANION GAP 13 (8-16); BLOOD UREA NITROGEN 39 MG/DL (7-18); BUN/CREATININE RATIO 24.1 (10.0-20.0); CALCIUM 7.7 MG/DL (8.5-10.1); CHLORIDE 114 MMOL/L (99-107); CREATININE 1.62 MG/DL (0.60-1.10); GLUCOSE 69 MG/DL (70-104); MAGNESIUM 1.7 MG/DL (1.5-2.4); SODIUM 144 MMOL/L (135-145); TOTAL CARBON DIOXIDE 17.1 MMOL/L (24-32); eCRCL 42 ML/MIN; eGFR 41 ML/MIN
[2023-12-18] MEDS: midodrine 5mg tablet PO SCH (08:23)
[2023-12-18] MEDS: VANCOMYCIN 750MG IV in NS 250 ML IV SCH (11:14)
[2023-12-18] MEDS: NYSTATIN 60 GM POWDER-BULK CONTAINER TP SCH (13:00)
[2023-12-18] MEDS ORDERED: levoFLOXACIN-Levaquin 750MG/D5 150 ML IV SCH (13:04)
[2023-12-19] MEDS: MESSAGE TO PHARMACY PO ONE (06:55)
[2023-12-19] MEDS ORDERED: DEXTROSE 15 GM of carb/4 tabs (each vial/BOTTLE has 4 tablets) PO PRN ×2 (06:55)
[2023-12-19] MEDS ORDERED: dextrose 50%-water 50ml dispensing syringe IV PRN ×2 (06:55)
[2023-12-19] MEDS ORDERED: glucagon, human recombinant 1mg kit SUBCUT PRN (06:55)
[2023-12-19 08:00] VITALS: RESP 13
[2023-12-19] MEDS: normal saline 1000ml 1,000 ML IV SCH (10:25)
[2023-12-19 20:00] VITALS: RESP 16; O2SAT 96
[2023-12-19] MEDS: insulin glargine (Lantus) pen - multi-dose SQ SCH (20:44)
[2023-12-19] MEDS: insulin Lispro (HumaLOG) vial - multi-dose SQ SCH (20:45)
[2023-12-19] MEDS: VANCOMYCIN LEVEL IV ONE (20:48)
[2023-12-19 22:00] VITALS: BP 132/61; PULSE 71; RESP 18; TEMP 98.1; O2SAT 94
[2023-12-20 02:00] VITALS: BP 142/64; PULSE 87; RESP 16; TEMP 97.5; O2SAT 97
[2023-12-20 07:00] VITALS: BP 115/52; PULSE 88; RESP 16; TEMP 99.8; O2SAT 90
[2023-12-20 07:05] LABS: BASOPHILS % (AUTO) 0.2 % (0-1); EOSINOPHILS % (AUTO) 0.5 % (0-6); HEMATOCRIT 28.7 % (42.0-52.0); HEMOGLOBIN 9.5 g/dl (14.0-17.9); LYMPHOCYTES # (AUTO) 1.5 X10'3 (1.1-4.8); LYMPHOCYTES % (AUTO) 16.8 % (21-51); MEAN CORPUSCULAR HEMOGLOBIN 27.6 PG (27.0-31.0); MEAN CORPUSCULAR HGB CONC 33.1 g/dL (33.0-36.5); MEAN CORPUSCULAR VOLUME 83.6 FL (78-98); MEAN PLATELET VOLUME 7.3 FL (7.4-10.4); MONOCYTES # (AUTO) 1.2 X10'3 (0-0.9); MONOCYTES % (AUTO) 13.3 % (2-12); NEUTROPHILS # (AUTO) 6.2 X10'3 (1.8-7.7); NEUTROPHILS % (AUTO) 69.2 % (42-75); PLATELET COUNT 129 X10'3 (140-440); RED BLOOD COUNT 3.44 X10'6 (4.70-6.10); RED CELL DISTRIBUTION WIDTH 21.6 % (11.5-14.5)
[2023-12-20 07:17] LABS: ALBUMIN 2.1 G/DL (3.4-5.0); ANION GAP 9 (8-16); BLOOD UREA NITROGEN 34 MG/DL (7-18); BUN/CREATININE RATIO 21.9 (10.0-20.0); CALCIUM 7.8 MG/DL (8.5-10.1); CHLORIDE 113 MMOL/L (99-107); CREATININE 1.55 MG/DL (0.60-1.10); GLUCOSE 84 MG/DL (70-104); POTASSIUM 3.6 MMOL/L (3.5-5.1); SODIUM 145 MMOL/L (135-145); eCRCL 44 ML/MIN; eGFR 44 ML/MIN
[2023-12-20] MEDS: fluconazole-Diflucan 200mg/NS 100 ML IV SCH (07:45)
[2023-12-20] MEDS: acetaminophen 325mg tablet PO PRN (07:46)
[2023-12-20 12:00] VITALS: BP 163/77; PULSE 73; RESP 16; TEMP 99.8; O2SAT 97
[2023-12-20] MEDS ORDERED: HYDROcodone/acetaminophen 5mg/325mg tablet PO PRN (13:15)
[2023-12-20 19:00] VITALS: RESP 12; O2SAT 99
[2023-12-20 21:00] VITALS: BP 142/70; PULSE 63; RESP 14; TEMP 98.7; O2SAT 94
[2023-12-21 02:30] VITALS: BP 115/55; PULSE 60; RESP 12; TEMP 97.8; O2SAT 96
[2023-12-21 06:00] VITALS: BP 125/61; PULSE 51; RESP 14; TEMP 97.6; O2SAT 95
[2023-12-21] MEDS: BRINZOLAMIDE 1% LEFTEYE SCH (08:00)
[2023-12-21] MEDS: OPTH LEFTEYE SCH (08:00)
[2023-12-21] MEDS: brimonidine 0.2% 5 ML ophthalmic drops LEFTEYE SCH (08:37)
[2023-12-21 11:52] VITALS: BP 115/54; PULSE 55; RESP 13; O2SAT 99
[2023-12-21 15:00] VITALS: BP 96/53; PULSE 57; RESP 11; O2SAT 98
[2023-12-21 18:00] VITALS: BP 118/62; PULSE 58; RESP 18; TEMP 97; O2SAT 98
[2023-12-21 22:00] VITALS: BP 122/56; PULSE 53; RESP 18; TEMP 96.3; O2SAT 98
[2023-12-22 02:00] VITALS: BP 125/68; PULSE 56; RESP 18; TEMP 97.5; O2SAT 98
[2023-12-22 06:00] VITALS: BP 141/66; PULSE 57; RESP 14; TEMP 97; O2SAT 98
[2023-12-22 12:28] VITALS: BP 146/81; PULSE 53; RESP 11; TEMP 97.7; O2SAT 99
[2023-12-31] MEDS ORDERED: ATOR20TA66 PO (14:50)
[2024-01-01] MEDS ORDERED: CALC600T21 PO (11:48)
[2024-01-04] MEDS ORDERED: PANT-47 PO (12:14)
== END 2023-12-22 13:01 | disposition home health service (06) | DRG 564 ==
LOC: ER 14:33 → ED HOLD 23:52 → EDBEDREQ 12-16 00:55 → PCU 3S 12-17 01:10
PROVIDERS: ADMIT Internal Medicine; ATTEND Family Medicine
DX: T87.44 Infection of amputation stump, left lower extremity (principal); G93.41 Metabolic encephalopathy; J18.9 Pneumonia, unspecified organism; E87.20 Acidosis, unspecified; B37.49 Other urogenital candidiasis; E03.9 Hypothyroidism, unspecified; E78.00 Pure hypercholesterolemia, unspecified; E11.649 Type 2 diabetes mellitus with hypoglycemia without coma; E87.5 Hyperkalemia; E88.09 Other disorders of plasma-protein metabolism, not elsewhere classified; E87.8 Other disorders of electrolyte and fluid balance, not elsewhere classified; T68.XXXA Hypothermia, initial encounter; I95.9 Hypotension, unspecified; R00.1 Bradycardia, unspecified; F03.90 Unspecified dementia, unspecified severity, without behavioral disturbance, psychotic disturbance, mood disturbance, and anxiety; L89.91 Pressure ulcer of unspecified site, stage 1; Y83.5 Amputation of limb(s) as the cause of abnormal reaction of the patient, or of later complication, without mention of misadventure at the time of the procedure; H54.62 Unqualified visual loss, left eye, normal vision right eye; I25.2 Old myocardial infarction; Z87.440 Personal history of urinary (tract) infections; Z88.0 Allergy status to penicillin; Z88.1 Allergy status to other antibiotic agents; Z79.899 Other long term (current) drug therapy; Z79.82 Long term (current) use of aspirin; Z89.511 Acquired absence of right leg below knee; Z89.512 Acquired absence of left leg below knee; Y92.89 Other specified places as the place of occurrence of the external cause
CPT/HCPCS: 36415; 71045; 76770; 80048; 80053; 80202; 81001; 82948; 83036; 83605; 83735; 84145; 84439; 84443; 85008; 85025; 87040; 87081; 87088; 92508; 92616; 93308; 99285; A4314; A4349; A6213; A6250; A6258; A6449; C1758; G0378; J0744; J1100; J1265; J1450; J1644; J1720; J1815; J1956; J3370; J3490; J7030; J7040; J7050; P9047